=== PATIENT | female | born 1965 | race African-American/Black ===

== ENCOUNTER 2018-07-22 11:40 | Inpatient (IN) | payer OTHER ==
[~2018-07-22] VITALS: Ht 160 cm; Wt 78.4 kg
[2018-07-22 12:11] LABS: Eosinophils # (auto) 0.1 uL; Eosinophils % (auto) 0.6 % (0.0-7.0); Lymphocytes # (auto) 1.7 uL; Monocytes # (auto) 0.5 uL; Neutrophils # (auto) 6.5 uL
[2018-07-22 12:15] LABS: Basophils # (auto) 0 uL; Basophils % (auto) 0.3 % (0.0-2.0); Hematocrit 35.5 % (36.0-46.0); Hemoglobin 11.8 g/dL (12.2-16.2); Lymphocytes % (auto) 19.9 % (10.0-50.0); Mean Corpuscular Hemoglobin 34.6 pg (28.0-32.0); Mean Corpuscular Hgb Conc. 33.3 g/dL (32.0-36.0); Monocytes % (auto) 5.4 % (0.0-12.0); Neutrophils % (auto) 73.8 % (37.0-80.0); Nucleated Red Blood Cells % 0.1 %; Platelet Count (auto) 241 10^3/uL (140-450); Red Blood Cells 3.41 10^6/uL (4.0-5.20); Red Cell Distribution Width 13.6 % (11.8-14.3); White Blood Cell 8.8 10^3/uL (4.4-10.8)
[2018-07-22] MEDS ORDERED: ASPirin 81 mg TAB PO ONE (12:30)
[2018-07-22 12:35] LABS: Albumin 3.4 g/dL (3.4-5.0); Anion Gap 7 (5-15); Blood Urea Nitrogen 31 mg/dL (7-18); Carbon Dioxide 20 mmol/L (21-32); Chloride 114 mmol/L (98-107); Glucose 115 mg/dL (74-106); Magnesium 2.1 mg/dL (1.6-2.6); Potassium 3.9 mmol/L (3.5-5.1); Sodium 141 mmol/L (136-145)
[2018-07-22 12:45] LABS: Alanine Aminotransferase 25 U/L (13-56); Alkaline Phosphatase 50 U/L (45-117); Aspartate Aminotransferase 16 U/L (15-37); Bilirubin, Total 0.3 mg/dL (0.2-1.0); GFR African American 25 mL/min; GFR Non-African American 21 mL/min; Total Protein 7.3 g/dL (6.4-8.2)
[2018-07-22 13:25] LABS: Urine Bacteria NONE SEEN /hpf (None Seen); Urine Blood Negative /uL (Negative); Urine WBC 1 /hpf (0 - 5)
[2018-07-22 14:14] LABS: INR 0.95 (0.9-1.15); Partial Thromboplastin Time 27.3 sec (23.64-32.05)
[2018-07-22] MEDS ORDERED: ATEN-60 PO (15:10)
[2018-07-22] MEDS ORDERED: SODB50I IV (15:10)
[2018-07-22] MEDS ORDERED: SODI650T PO (15:10)
[2018-07-22] MEDS ORDERED: LEVO0.1T OR (15:10)
[2018-07-22] MEDS ORDERED: CHOL100055 PO (15:10)
[2018-07-22] MEDS ORDERED: AZAT50TA22 PO (15:10)
[2018-07-22] MEDS ORDERED: PRE5T PO (15:10)
[2018-07-22] MEDS ORDERED: ATOR40TA52 PO (15:10)
[2018-07-22] MEDS ORDERED: AZIL40TA2 PO (15:10)
[2018-07-22] MEDS ORDERED: ACYC1CAP23 PO (15:10)
[2018-07-22] MEDS ORDERED: POTATAB5 PO (15:12)
[2018-07-22] MEDS ORDERED: ONDANSETRON HCL 4 MG/2 ML VIAL IV PRN (16:45)
[2018-07-22] MEDS ORDERED: HYDROcodone-ACET 5/325MG TAB PO PRN (16:45)
[2018-07-22] MEDS ORDERED: hydrALAZINE HCL 20 MG/ML VL IV PRN (16:45)
[2018-07-22] MEDS ORDERED: NITROGLYCERIN 0.4 MG SL TAB SL PRN (16:45)
[2018-07-22] MEDS ORDERED: ACETAMINOPHEN 500 MG TAB PO PRN (16:45)
[2018-07-22] MEDS ORDERED: MORPHINE SULF INJ 2 MG/ML SYRINGE 1ML IV PRN ×2 (16:45)
--- NOTE | 2018-07-22 20:15 | NUR ---
Telemetry admit from ER [facility] admitted to Telemetry unit after SBAR received. Patient oriented to Mary Anne Latif, primary RN, unit, room, bed, and unit policies regarding patient care and visiting hours. Patient now on continuous telemetry monitoring, tele box 45# and telemetry reading on arrival to unit is NSR 68. Patient weighed by bedscale and encouraged to call if they need something. All questions and concerns addressed, patient verbalized understanding. Note:
[2018-07-22 21:30] VITALS: BP 138/69
[2018-07-22] MEDS ORDERED: PATIENTS OWN MEDICATION (Atorvastatin Calcium 1 TAB) PO SCH (22:00)
[2018-07-22] MEDS ORDERED: ATORVASTATIN 20 MG TAB PO SCH (22:00)
[2018-07-22] MEDS: ACYCLOVIR 400 MG TAB PO SCH (22:21)
[2018-07-22] MEDS: ATENOLOL 25 MG TAB PO SCH (22:32)
[2018-07-22] MEDS: SODIUM BICARBONATE 650 MG TAB PO SCH (23:11)
[2018-07-22 23:47] VITALS: BP 138/69
[2018-07-23 04:30] VITALS: BP 105/52
--- NOTE | 2018-07-23 06:10 | NUR ---
[facility] SWAB SENT.
[2018-07-23 07:13] LABS: Basophils # (auto) 0 uL; Basophils % (auto) 0.4 % (0.0-2.0); Eosinophils # (auto) 0.1 uL; Lymphocytes # (auto) 2.9 uL; Mean Corpuscular Hemoglobin 34.3 pg (28.0-32.0); Neutrophils # (auto) 5.8 uL; White Blood Cell 9.5 10^3/uL (4.4-10.8)
[2018-07-23 07:16] LABS: Eosinophils % (auto) 1.2 % (0.0-7.0); Hematocrit 35.8 % (36.0-46.0); Hemoglobin 11.8 g/dL (12.2-16.2); Lymphocytes % (auto) 30.6 % (10.0-50.0); Mean Corpuscular Hgb Conc. 33.1 g/dL (32.0-36.0); Mean Corpuscular Volume 103.7 fL (80.0-100.0); Monocytes # (auto) 0.7 uL; Neutrophils % (auto) 60.8 % (37.0-80.0); Platelet Count (auto) 223 10^3/uL (140-450); Red Blood Cells 3.45 10^6/uL (4.0-5.20); Red Cell Distribution Width 13.4 % (11.8-14.3)
[2018-07-23 07:30] LABS: BUN/Creatinine Ratio 13.2; Calcium 8.7 mg/dL (8.5-10.1); Potassium 4.5 mmol/L (3.5-5.1)
[2018-07-23 09:00] VITALS: BP 105/68
[2018-07-23] MEDS: ATENOLOL 25 MG TAB PO SCH (10:00)
[2018-07-23] MEDS ORDERED: ASPirin-EC 81 mg tab PO SCH (10:00)
[2018-07-23] MEDS ORDERED: predniSONE 5 MG TAB PO SCH (10:00)
[2018-07-23] MEDS: ACYCLOVIR 400 MG TAB PO SCH (10:00)
[2018-07-23] MEDS ORDERED: azaTHIOprine 50 MG TAB PO SCH (10:00)
[2018-07-23] MEDS: SODIUM BICARBONATE 650 MG TAB PO SCH (10:00)
[2018-07-23] MEDS ORDERED: Azilsartan Medoxomil-Chlorthal (Edarbyclor 40-12.5 mg) TAB PO SCH (10:00)
--- NOTE | 2018-07-23 10:09 | NUR ---
PT REPORTS SHE WANTS TO LEAVE. SHE REPORTS SHE TAKES MYFORTIC AT HOME AND DOES NOT WANT TO TAKE IMURAN DUE TO NEW POSSIBLE SIDE EFFECTS. SHE REPORTS SHE IS ALLERGIC TO LABETALOL, BUT TAKES ATENOLOL AT HOME. PT REPORTS SHE WANTS TO HOLD ATENOLOL BECAUSE HER BLOOD PRESSURE IS LOW. SHE REPORTS SHE IS GOING HOME TODAY, "NO IF'S AND'S OR BUT'S ABOUT IT." SHE REPORTS SHE HAS ZOFRAN FROM HOME AND ONE DOSE OF MYFORTIC. PT EDUCATED PT OWN HOME MEDICATIONS NEED TO BE TAKEN TO OUR PHARMACY. PT DOES NOT WANT TO GIVE HER HOME MEDICATIONS SHE WANTS TO LEAVE TODAY. DR SAHU SPEAKING WITH PATIENT AND . PT REPORTS NO CHEST PAIN AT THIS TIME. NOTIFIED PT WANTS TO LEAVE.
--- NOTE | 2018-07-23 10:33 | NUR ---
AWARE PT IS LEAVING AMA AND PLANS TO FOLLOW UP WITH HER FLOOR TECH AND LOBO GOMEZ. PT INSTRUCTED TO COME BACK IF SHE HAS ANY PROBLEMS. PT VERBALIZED UNDERSTANDING AND WANT TO SIGN OUT AMA.
--- NOTE | 2018-07-23 10:47 | NUR ---
AMA Note KEDAR DURAN states they want to leave the hospital Against Medical Advice (AMA). Patient encouraged to stay for further treatment/stabilization. MD notified of patient's wishes. Patient advised of the risks and benefits of leaving AMA. Patient verbalized understanding. Patient encouraged to return to the ER if symptoms do not improve or worsen.
--- NOTE | 2018-07-23 10:52 | NUR ---
IV DISCONTINUED, PRESSURE DRESSING APPLIED. TLE BOX SENT BACK TO [facility] AND PT ID BANDS REMOVED.
== END 2018-07-23 11:00 | disposition left against medical advice (07) | DRG 291 ==
LOC: EDBD 11:40 → ER 11:48 → TELE 11:50 → TELE-CENTR 20:08
PROVIDERS: ADMIT Nurse Practitioner Acute Care; ATTEND Nurse Practitioner Acute Care
DX: I13.0 Hypertensive heart and chronic kidney disease with heart failure and stage 1 through stage 4 chronic kidney disease, or unspecified chronic kidney disease (principal); I50.41 Acute combined systolic (congestive) and diastolic (congestive) heart failure; N18.4 Chronic kidney disease, stage 4 (severe); Z94.0 Kidney transplant status; R07.89 Other chest pain; D53.9 Nutritional anemia, unspecified; E78.5 Hyperlipidemia, unspecified; I35.2 Nonrheumatic aortic (valve) stenosis with insufficiency; Z53.21 Procedure and treatment not carried out due to patient leaving prior to being seen by health care provider; E66.9 Obesity, unspecified; K21.9 Gastro-esophageal reflux disease without esophagitis; I25.10 Atherosclerotic heart disease of native coronary artery without angina pectoris; Z68.30 Body mass index [BMI] 30.0-30.9, adult; Z82.49 Family history of ischemic heart disease and other diseases of the circulatory system; Z88.8 Allergy status to other drugs, medicaments and biological substances
CPT/HCPCS: 36415; 71045; 80048; 80053; 81001; 81025; 83605; 83735; 83880; 84443; 84484; 85025; 85379; 85610; 85730; 86141; 87040; 87081; 93005; 94761; G0378

== ENCOUNTER 2022-10-16 06:58 | Inpatient (IN) | payer OTHER ==
[~2022-10-16] VITALS: Ht 170.2 cm; Wt 67.1 kg
[~2022-10-16 06:58] MED LIST: ACYC200C22 PO; ATEN-60 PO; ATOR40TA52 PO; AZAT50TA43 PO; AZIL40TA2 PO; CHOL100055 PO; LEVO0.1T OR; POTATAB5 PO; PRE5T PO; SODI650T PO
[2022-10-16] MEDS ORDERED: ONDANSETRON HCL 4 MG/2 ML VIAL IV ONE (09:00)
[2022-10-16] MEDS ORDERED: HYDROmorphone HCL 2 MG/ML VL/or syr IV ONE (09:00)
[2022-10-16 09:06] VITALS: PULSE 66; RESP 16; O2SAT 98
[2022-10-16] MEDS ORDERED: D5W/SOD CHL 0.45% 1,000 ML IV SCH (13:00)
[2022-10-16] MEDS ORDERED: MORPHINE SULFATE INJ 2 MG/ml SYRG IV PRN (13:00)
[2022-10-16] MEDS ORDERED: NITROGLYCERIN 0.4 MG SL TAB SL PRN (13:00)
[2022-10-16] MEDS ORDERED: ACETAMINOPHEN 325 MG TAB PO PRN (13:00)
[2022-10-16] MEDS ORDERED: PROMETHAZINE HCL 25 MG/ML 1ML IV PRN (13:00)
[2022-10-16 13:26] LABS: INR 1.01 (0.9-1.15); Prothrombin Time 10.6 sec (9.3-11.8)
[2022-10-16 13:32] LABS: Alanine Aminotransferase 35 U/L (7-40); Albumin 4.1 g/dL (3.2-4.8); Alkaline Phosphatase 69 U/L (46-116); Anion Gap 7.4 (5-15); Aspartate Aminotransferase 28 U/L (13-40); BUN/Creatinine Ratio 14.8 (10.0-20.0); Bilirubin, Total 0.5 mg/dL (0.2-1.0); Blood Urea Nitrogen 30 mg/dL (9-23); Calcium 9.3 mg/dL (8.5-10.1); Carbon Dioxide 25.6 mmol/L (20-30); Chloride 108 mmol/L (98-107); Glucose 100 mg/dL (74-106); Potassium 4.3 mmol/L (3.5-5.1); Sodium 141 mmol/L (136-145); Total Protein 6.3 g/dL (5.7-8.2)
[2022-10-16] MEDS: OXYCODONE W/ ACETAMINOPHEN 5/325MG TABLET PO PRN ×2 (13:52→20:13)
[2022-10-16 14:24] LABS: Amphetamine Screen, Urine Neg (NEGATIVE); Urine Bacteria NONE SEEN /hpf (None Seen); Urine Blood 2+ /uL (Negative); Urine Clarity Clear (Clear); Urine Color Colorless (Yellow); Urine Protein, UAD 1+ (Negative); Urine Specific Gravity 1.016 (1.001-1.035); Urine Urobilinogen Normal (Negative); Urine WBC 8 /hpf (0 - 5)
[2022-10-16 14:25] LABS: Barbiturate Scree,Urine Neg (NEGATIVE); Benzodiazephine Screen, Urine Neg (NEGATIVE); Cannabinoid Screen, Urine Neg (NEGATIVE); Cocaine Screen, Urine Neg (NEGATIVE); Opiate Scree,Urine Neg (NEGATIVE); Phencyclidine Screen, Urine Neg (NEGATIVE)
[2022-10-16 14:27] LABS: Basophils # (auto) 0 10 ^3/uL (0-0.2); Basophils % (auto) 0.2 % (0.0-2.0); Eosinophils # (auto) 0.1 10 ^3/uL (0-0.8); Eosinophils % (auto) 0.7 % (0.0-7.0); Hematocrit 39.7 % (36.0-46.0); Lymphocytes # (auto) 2.9 10 ^3/uL (0.4-5.4); Lymphocytes % (auto) 27.1 % (10.0-50.0); Mean Corpuscular Hemoglobin 33.4 pg (28.0-32.0); Mean Corpuscular Hgb Conc. 32.6 g/dL (32.0-36.0); Mean Corpuscular Volume 102.3 fL (80.0-100.0); Monocytes # (auto) 0.9 10 ^3/uL (0-1.3); Monocytes % (auto) 8.2 % (0.0-12.0); Neutrophils # (auto) 6.8 10 ^3/uL (1.6-8.6); Neutrophils % (auto) 63.8 % (37.0-80.0); Nucleated Red Blood Cells % 0.2 %; Red Blood Cells 3.88 10^6/uL (4.0-5.20); Red Cell Distribution Width 13.9 % (11.8-14.3); White Blood Cell 10.7 10^3/uL (4.4-10.8)
[2022-10-16 14:45] VITALS: PULSE 64; RESP 16; O2SAT 98
[2022-10-16] MEDS: D5W/SOD CHL 0.45% 1,000 ML IV SCH (17:03)
[2022-10-16] MEDS: MORPHINE SULFATE INJ 2 MG/ml SYRG IV PRN ×2 (19:09→23:59)
[2022-10-16 20:06] VITALS: PULSE 62; RESP 14; O2SAT 99
[2022-10-16] MEDS ORDERED: ATENOLOL 25 MG TAB PO SCH (22:00)
[2022-10-16] MEDS ORDERED: OLAN2.5T38 PO (23:42)
[2022-10-16] MEDS ORDERED: LOS25T PO (23:42)
[2022-10-16] MEDS ORDERED: NYST150P2 TP (23:42)
[2022-10-16] MEDS ORDERED: ESCI1TAB36 PO (23:42)
[2022-10-16] MEDS ORDERED: LEVO25TA6 PO (23:42)
[2022-10-16] MEDS ORDERED: ONDA-188 PO (23:42)
[2022-10-16] MEDS ORDERED: ACET-1079 PO (23:42)
[2022-10-16] MEDS ORDERED: MYCO1TAB (23:42)
[2022-10-16] MEDS ORDERED: CALC0.5C PO (23:42)
[2022-10-16] MEDS: SODIUM BICARBONATE 650 MG TAB PO SCH (23:59)
[2022-10-16] MEDS: ACYCLOVIR 400 MG TAB PO SCH (23:59)
[2022-10-17] VITALS (8 sets, daily range): BP systolic 107–141; BP diastolic 47–90; PULSE 70–118; RESP 17–19; TEMP 36.8; O2SAT 93–100
[2022-10-17] MEDS: ATORVASTATIN 20 MG TAB PO SCH ×2 (00:59→22:09)
[2022-10-17] MEDS: OXYCODONE W/ ACETAMINOPHEN 5/325MG TABLET PO PRN ×3 (00:59→22:09)
[2022-10-17] MEDS: D5W/SOD CHL 0.45% 1,000 ML IV SCH (03:58)
[2022-10-17] MEDS ORDERED: GLYCOPYRROLATE 0.2 MG/ML 1ML VIAL ONE (08:04)
[2022-10-17] MEDS ORDERED: HYDROmorphone HCL 2 MG/ML VL/or syr ONE (08:04)
[2022-10-17] MEDS ORDERED: PROPOFOL 10 MG/ML 20 ML IV ONE (08:04)
[2022-10-17] MEDS ORDERED: fentaNYL CITRATE 100 MCG/2 ML VL ONE (08:04)
[2022-10-17] MEDS ORDERED: DexAMETHasone SOD PHOS 10MG/1ML VIAL INJ ONE (08:04)
[2022-10-17] MEDS ORDERED: ONDANSETRON HCL 4 MG/2 ML VIAL ONE (08:04)
[2022-10-17] MEDS ORDERED: LIDOCAINE 2% (LOCAL ANESTH.) PF 5ml SDV ONE (08:04)
[2022-10-17] MEDS ORDERED: MIDAZOLAM HCL 2MG/2ML 2ml VIAL (1mg/ml) ONE (08:04)
[2022-10-17] MEDS ORDERED: ceFAZolin 1GM VL ONE (08:25)
[2022-10-17 08:49] LABS: Alanine Aminotransferase 26 U/L (7-40); Albumin 3.6 g/dL (3.2-4.8); Alkaline Phosphatase 56 U/L (46-116); Anion Gap 5.2 (5-15); Aspartate Aminotransferase 22 U/L (13-40); Bilirubin, Total 0.7 mg/dL (0.2-1.0); Blood Urea Nitrogen 25 mg/dL (9-23); Calcium 8.3 mg/dL (8.5-10.1); Carbon Dioxide 22.8 mmol/L (20-30); Chloride 108 mmol/L (98-107); Glucose 153 mg/dL (74-106); Potassium 3.9 mmol/L (3.5-5.1); Total Protein 5.7 g/dL (5.7-8.2)
[2022-10-17 08:54] LABS: Sodium 136 mmol/L (136-145)
[2022-10-17] MEDS ORDERED: ePHEDrine SULFATE 50 MG/ML AMP ONE (09:34)
[2022-10-17] MEDS ORDERED: BUPIVACAINE 0.25% INJ 50ML VIAL ONE (09:37)
[2022-10-17] MEDS: azaTHIOprine 50 MG TAB PO SCH (10:00)
[2022-10-17] MEDS ORDERED: AZILSARTAN MEDOXOMIL CHLORTHAL PO SCH (10:00)
[2022-10-17] MEDS: CHOLECALCIFEROL (VITD3) 1,000UNIT=25mCg TAB PO SCH (10:00)
[2022-10-17] MEDS: ACYCLOVIR 400 MG TAB PO SCH ×2 (10:00→22:08)
[2022-10-17] MEDS: ATENOLOL 25 MG TAB PO SCH (10:00)
[2022-10-17] MEDS: SODIUM BICARBONATE 650 MG TAB PO SCH ×2 (10:00→22:06)
[2022-10-17] MEDS: predniSONE 5 MG TAB PO SCH (10:00)
[2022-10-17] MEDS ORDERED: HYDROmorphone HCL 2 MG/ML VL/or syr IV PRN (10:30)
[2022-10-17] MEDS ORDERED: ONDANSETRON HCL 4 MG/2 ML VIAL IV PRN (10:30)
[2022-10-17] MEDS ORDERED: BISACODYL 5 MG EC TAB PO PRN (10:45)
[2022-10-17] MEDS: ceFAZolin 1GM/50ML 50 ML IV SCH ×3 (10:45→22:14)
[2022-10-17] MEDS ORDERED: MYCOPHENOLATE 250 MG CAP PO SCH (10:45)
[2022-10-17] MEDS ORDERED: CALCITRIOL 0.25 MCG CAP PO ONE (11:45)
[2022-10-17] MEDS ORDERED: LEVOTHYROXINE SODIUM 25 MCG TAB PO ONE (11:45)
[2022-10-17] MEDS: LACTATED RINGER'S 1,000 ML IV SCH (13:35)
[2022-10-17] MEDS: MORPHINE SULFATE INJ 2 MG/ml SYRG IV PRN (20:10)
[2022-10-17] MEDS: DOCUSATE SOD 100 MG CAP PO SCH (22:14)
[2022-10-18] MEDS: LACTATED RINGER'S 1,000 ML IV SCH (03:25)
[2022-10-18 05:00] VITALS: BP 114/61; PULSE 88; RESP 16; TEMP 98.1; O2SAT 96
[2022-10-18 06:04] LABS: Hematocrit 33.5 % (36.0-46.0); Hemoglobin 10.8 g/dL (12.2-16.2)
[2022-10-18 06:07] LABS: Chloride 109 mmol/L (98-107); Potassium 4.7 mmol/L (3.5-5.1); Sodium 140 mmol/L (136-145)
[2022-10-18 06:08] LABS: Anion Gap 8.7 (5-15); Calcium 8.9 mg/dL (8.7-10.4); Carbon Dioxide 22.3 mmol/L (20-30)
[2022-10-18 06:13] LABS: BUN/Creatinine Ratio 9.8 (10.0-20.0); Blood Urea Nitrogen 22 mg/dL (9-23); Glucose 149 mg/dL (74-106)
[2022-10-18] MEDS ORDERED: LEVOTHYROXINE SODIUM 25 MCG TAB PO SCH (07:00)
[2022-10-18 08:00] VITALS: PULSE 94; PULSE 98; RESP 18; TEMP 36.8; O2SAT 94
[2022-10-18] MEDS: predniSONE 5 MG TAB PO SCH (08:50)
[2022-10-18] MEDS: OXYCODONE W/ ACETAMINOPHEN 5/325MG TABLET PO PRN (08:50)
[2022-10-18] MEDS: SODIUM BICARBONATE 650 MG TAB PO SCH (08:50)
[2022-10-18] MEDS: DOCUSATE SOD 100 MG CAP PO SCH (08:50)
[2022-10-18] MEDS: CHOLECALCIFEROL (VITD3) 1,000UNIT=25mCg TAB PO SCH (08:50)
[2022-10-18] MEDS: ACYCLOVIR 400 MG TAB PO SCH (08:56)
[2022-10-18 09:00] VITALS: BP 151/79; PULSE 98; RESP 17; TEMP 98.7; O2SAT 94
[2022-10-18] MEDS: azaTHIOprine 50 MG TAB PO SCH (09:02)
[2022-10-18] MEDS: ATENOLOL 25 MG TAB PO SCH (09:02)
[2022-10-18] MEDS ORDERED: CALCITRIOL 0.25 MCG CAP PO SCH (10:00)
[2022-10-18] MEDS ORDERED: HYDR-4072 PO ×2 (11:49)
[2022-10-18] MEDS ORDERED: CEPH500C PO (11:56)
[2022-10-18 12:13] VITALS: TEMP 36.7
[2022-10-18 13:00] VITALS: BP 149/85; PULSE 91; RESP 18; TEMP 98.1; O2SAT 97
[2022-10-19] MEDS ORDERED: HYDR-4072 PO (15:42)
== END 2022-10-18 13:20 | disposition home or self-care (01) | DRG 511 ==
LOC: ER 06:58 → EDBD 06:58 → TELE 13:06 → TELE-EAST 21:52
PROVIDERS: ADMIT Hospitalist; ATTEND Family Medicine
PROC: 0PSH04Z Reposition Right Radius with Internal Fixation Device, Open Approach (ICD-10-PCS; principal; 2022-10-17 08:23)
DX: S52.571A Other intraarticular fracture of lower end of right radius, initial encounter for closed fracture (principal); I13.0 Hypertensive heart and chronic kidney disease with heart failure and stage 1 through stage 4 chronic kidney disease, or unspecified chronic kidney disease; N17.9 Acute kidney failure, unspecified; N18.4 Chronic kidney disease, stage 4 (severe); T86.12 Kidney transplant failure; I50.9 Heart failure, unspecified; E78.5 Hyperlipidemia, unspecified; E89.0 Postprocedural hypothyroidism; K21.9 Gastro-esophageal reflux disease without esophagitis; Y83.8 Other surgical procedures as the cause of abnormal reaction of the patient, or of later complication, without mention of misadventure at the time of the procedure; Y93.89 Activity, other specified; Y92.89 Other specified places as the place of occurrence of the external cause; Y99.8 Other external cause status; V89.2XXA Person injured in unspecified motor-vehicle accident, traffic, initial encounter; Z88.8 Allergy status to other drugs, medicaments and biological substances; Z82.49 Family history of ischemic heart disease and other diseases of the circulatory system
CPT/HCPCS: 36415; 70450; 71045; 71250; 72125; 73100; 74176; 76000; 80048; 80053; 80307; 81001; 82550; 85014; 85018; 85610; 86850; 86900; 86901; G0378; J0690; J1100; J2001; J2250; J2405; J2704; J3490; J7517